=== PATIENT | male | born 1950 | race Caucasian/White ===

== ENCOUNTER 2018-05-05 05:37 | Day surgery (SDC) | payer MEDICARE, BC ==
[~2018-05-05 05:37] MED LIST: Buffered Lidocaine 0.9% SYRIN* 5 ML/SYR SYRINGE INTRADERM ONE; Lactated Ringers 1000 ML Bag* 1,000 ML IV SCH
[2018-05-05] MEDS ORDERED: ceFAZolin 2 GM PREMIX in ORs 2 GM/50 ML BAG IVPB ONE (06:09)
[2018-05-05] MEDS ORDERED: Bupivacaine 0.25% SDV PF* 10 ML VIAL INJ ONE (06:58)
[2018-05-05] MEDS ORDERED: Midazolam* 1 MG/ML 5 ML VIAL (5 MG) ONE (07:32)
[2018-05-05] MEDS ORDERED: Propofol* 10 MG/ML 20 ML BTL ONE (07:38)
[2018-05-05] MEDS ORDERED: Acetaminophen TAB* 325 MG PO PRN (07:59)
[2018-05-05] MEDS ORDERED: Naloxone* 0.4 MG/ML 1 ML VIAL IV PRN (07:59)
[2018-05-05] MEDS ORDERED: Ibuprofen TAB* 400 MG PO PRN (07:59)
--- NOTE | 2018-05-05 08:14 | OP ---
Operative Report - Blank - Operative Report Date of Operation: 05/05/18 Note: PATIENT: Hair Araiza DATE OF : 1950 DATE OF SURGERY: 05/05/2018 SURGEON: Da Vasques MD CREOSOTING ENGINEER: PAPO Rivera, whos assistance was necessary for positioning, retraction, help with instrumentation, and closure. ANESTHESIOLOGIST: Noemí Dunn MD PREOPERATIVE DIAGNOSIS: Left painful 5th toe deformity POSTOPERATIVE DIAGNOSIS: Left painful 5th toe deformity OPERATION: Left 5th toe amputation at the level of the PIP joint ANESTHESIA: MAC IMPLANTS: none TOURNIQUET TIME: Less than 30 minutes with an ankle Esmarch tourniquet. SPECIMENS: Toe to pathology ESTIMATED BLOOD LOSS: minimal COMPLICATIONS: none STATUS: Stable from the operating room to the recovery room and then home. INDICATIONS FOR PROCEDURE: Hair has had a persistently painful left 5th toe deformity. Both operative and non operative treatment alternatives were reviewed. Further, the nature and risks of surgery were reviewed in careful detail. Our discussions regarding the risks of surgery included, but were not limited to, infection, wound problems, nerve injury, neuroma, RSD, persistent symptoms, blood clot, failure of the surgery, need for further amputation or surgery, and even the remote chance of catastrophic complication, including loss of limb. DESCRIPTION OF PROCEDURE: The patient was seen in the preoperative holding unit and informed written consent was obtained. The appropriate extremity was marked. The patient was then brought to the operating room and carefully positioned on the operating room table. Anesthesia was induced. All bony prominences were padded with great care. A chlorhexidine based pre-scrub was performed followed by a chloraprep prep and drape in standard sterile fashion. A surgical safety pause was then conducted in which we confirmed the appropriate patient, extremity, planned procedure, availability of equipment, indication and administration of prophylactic antibiotics, and DVT prophylaxis in the form of a compression boot on the non-surgical extremity. I began with an exsanguination and application of an ankle Esmarch tourniquet. I then made an incision to remove the distal aspect of the toe. I maintained enough soft-tissue length for closure. The phalanges were dissected out and the toe was amputated at the level of the PIP joint. The toe was then sent to pathology. We then irrigated copiously after removing the ankle Esmarch tourniquet. The skin edges were pink. We closed with 3-0 monocryl and then 3-0 nylon and then placed a sterile dressing. The patient was then awakened from anesthesia and transferred to the recovery room in stable condition. There were no complications. All needle and sponge counts were correct at the end of the case. ATTESTATION: I attest I was present and scrubbed and performed the critical portions of the procedure myself. POSTOPERATIVE PLAN: The patient may be heel weight-bearing in a post-operative shoe and will follow up will be in two weeks for a wound check.
[2018-05-05 09:41] VITALS: BP 165/91
== END 2018-05-05 10:06 | disposition home or self-care (01) ==
LOC: OR 05:37
PROVIDERS: ATTEND Orthopaedic Surgery
DX: M20.42 Other hammer toe(s) (acquired), left foot (principal); E78.5 Hyperlipidemia, unspecified
CPT/HCPCS: 88305; 88311; J0690; J2250; J2704; J3490